=== PATIENT | female | born 1985 | race Caucasian/White ===

== ENCOUNTER 2018-12-09 20:48 | Emergency (ER) | payer SELFPAY ==
[~2018-12-09] VITALS: Ht 170.2 cm; Wt 95.3 kg
[2018-12-09 20:57] VITALS: BP_SYST 136
--- NOTE | 2018-12-09 21:08 | NUR ---
Patient to ER bed 07 to gown for evaluation. Side rails up.
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
--- NOTE | 2018-12-09 21:46 | NUR ---
ER MD Cheema at bedside for medical evaluation.
[2018-12-09] MEDS ORDERED: BACITRACIN 1 GM OINT TP ONE (23:45)
--- NOTE | 2018-12-10 | NUR ---
No adverse reactions noted after medication administration. Will continue to monitor.
[2018-12-10] MEDS ORDERED: traMADol HCL HCL 50 MG TABLET (ULTRAM) PO ONE (00:15)
[2018-12-10 00:22] VITALS: BP_SYST 132
--- NOTE | 2018-12-10 00:22 | NUR ---
Patient given written and verbal discharge instructions and verbalizes understanding. ER MD discussed with patient the results and treatment provided. Patient in stable condition. ID arm band removed. Rx of Motrin given. Patient educated on pain management and to follow up with PMD. Pain Scale 2/10 tolerable to patient. Opportunity for questions provided and answered. Medication side effect fact sheet provided.
== END 2018-12-10 00:22 | disposition home or self-care (01) ==
LOC: SED 20:48
DX: S50.811A Abrasion of right forearm, initial encounter (principal); S70.11XA Contusion of right thigh, initial encounter; S80.01XA Contusion of right knee, initial encounter; X58.XXXA Exposure to other specified factors, initial encounter; Y93.89 Activity, other specified; Y92.89 Other specified places as the place of occurrence of the external cause; Y99.8 Other external cause status
CPT/HCPCS: 73564; 73590-TC; 99283

== ENCOUNTER 2018-12-26 15:12 | Emergency (ER) | payer MEDICAID ==
[~2018-12-26] VITALS: Ht 170.2 cm; Wt 95.3 kg
[2018-12-26 15:32] VITALS: BP_SYST 126
[2018-12-26 16:45] VITALS: BP_SYST 120
== END 2018-12-26 16:45 | disposition home or self-care (01) ==
LOC: SED 15:12
DX: S70.11XA Contusion of right thigh, initial encounter (principal); S70.312A Abrasion, left thigh, initial encounter; M25.561 Pain in right knee; R03.0 Elevated blood-pressure reading, without diagnosis of hypertension; W19.XXXA Unspecified fall, initial encounter; Y93.89 Activity, other specified; Y92.89 Other specified places as the place of occurrence of the external cause; Y99.8 Other external cause status
CPT/HCPCS: 73560-TC; 93971; 99284